=== PATIENT | male | born 1965 | race Two or more races ===

== ENCOUNTER 2024-09-20 06:16 | Emergency (ER) | payer OTHER ==
[~2024-09-20] VITALS: Ht 180.3 cm; Wt 77.1 kg
[2024-09-20 07:34] LABS: PLATELET COUNT (AUTO) 314 K/uL (152-348); RED BLOOD CELL COUNT(AUTO) 4.40 MIL/uL (4.06-5.63); RED CELL DISTRIBUTION WIDTH 13.7 % (12.1-16.2); WHITE BLOOD COUNT (AUTO) 8.2 K/uL (3.6-10.2)
[2024-09-20 07:43] LABS: CREATININE 1.1 mg/dL (0.6-1.3); SODIUM SERUM 140 mmol/L (136-145); UREA NITROGEN, BLOOD 19 mg/dL (7-18)
[2024-09-20 07:48] LABS: ASPARTATE AMINOTRANSFERASE 6 U/L (15-37); TOTAL PROTEIN, SERUM 6.9 g/dL (6.4-8.2)
[2024-09-20] MEDS ORDERED: SULFAMETH/TRIMETH 800/160 MG TABLET ONE (09:09)
[2024-09-20] MEDS: SULFAMETH/TRIMETH 800/160 MG TABLET PO ONE (09:11)
[2024-09-20] MEDS ORDERED: SULF1TAB48 PO (09:11)
[2024-09-20] MEDS ORDERED: CEPH500C2 PO (09:11)
[2024-09-20 09:22] VITALS: BP 116/77; TEMP 98; O2SAT 99
== END 2024-09-20 09:24 | disposition home or self-care (01) ==
LOC: ER 06:27
DX: L03.115 Cellulitis of right lower limb (principal); M79.605 Pain in left leg; M79.604 Pain in right leg
CPT/HCPCS: 36415; 73590; 84484; 85025; 85730; A4606; A4663